=== PATIENT | female | born 1990 | race Caucasian/White ===

== ENCOUNTER 2018-05-25 04:21 | Emergency (ER) | payer BC, MEDICAID ==
[~2018-05-25] VITALS: Ht 157.5 cm; Wt 79.4 kg
[~2018-05-25 04:21] MED LIST: NKM
[2018-05-25 04:22] VITALS: BP 145/83
[2018-05-25] MEDS ORDERED: Tetanus/Diptheria/Pertussis Vaccine 0.5ml Syr IM ONE (05:00)
[2018-05-25] MEDS ORDERED: LET 3ml Soln TOPIC ONE (05:00)
[2018-05-25] MEDS ORDERED: Bacitracin Oint UD TOPIC ONE (05:00)
[2018-05-25] MEDS ORDERED: Lidocaine 1% MPF 10mg/ml 5ml INJ ONE (05:00)
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
[2018-05-25] MEDS ORDERED: Lidocaine 1% MPF 10mg/ml 5ml ONE (05:30)
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
[2018-05-25] MEDS ORDERED: TRAMADOL HCL50 MG ORAL (06:28)
[2018-05-25] MEDS ORDERED: IBUPROFEN600 MG ORAL (06:28)
[2018-05-25] MEDS ORDERED: ROBAXIN500 MG PO (06:28)
[2018-05-25] MEDS ORDERED: BACITRACIN15 GM TOPIC (06:34)
[2018-05-25 07:00] VITALS: BP 99/59
== END 2018-05-25 07:00 | disposition home or self-care (01) ==
LOC: EDBD 04:21 → EMR 05:12
DX: S91.311A Laceration without foreign body, right foot, initial encounter (principal); L08.9 Local infection of the skin and subcutaneous tissue, unspecified; V49.49XA Driver injured in collision with other motor vehicles in traffic accident, initial encounter; Y92.488 Other paved roadways as the place of occurrence of the external cause; Z23 Encounter for immunization
CPT/HCPCS: 90471; 90715; 99284